=== PATIENT | male | born 1960 | race African-American/Black ===

== ENCOUNTER 2017-01-24 11:34 | Emergency (ER) | payer OTHER | END 2017-01-24 13:10 | disposition home or self-care (01) | LOC: D.ER 11:34 | DX: S39.012A Strain of muscle, fascia and tendon of lower back, initial encounter (principal); V43.52XA Car driver injured in collision with other type car in traffic accident, initial encounter; Y93.89 Activity, other specified; Y92.410 Unspecified street and highway as the place of occurrence of the external cause; M62.838 Other muscle spasm; I10 Essential (primary) hypertension ==